=== PATIENT | female | born 1940 | race Caucasian/White ===

== ENCOUNTER 2021-01-15 14:25 | Outpatient (CLI) | payer MEDICARE | END 2021-01-15 23:59 | disposition home or self-care (01) | LOC: RAD 14:25 | PROVIDERS: ATTEND Nurse Practitioner Family | DX: K21.9 Gastro-esophageal reflux disease without esophagitis (principal); R13.14 Dysphagia, pharyngoesophageal phase; R49.0 Dysphonia | CPT/HCPCS: 74230 ==